=== PATIENT | male | born 1970 | race Caucasian/White ===

== ENCOUNTER → 2021-03-30 12:17 | Outpatient (CLI) | payer OTHER, SELFPAY ==
[2021-03-30 15:43] LABS: T4 Free Direct 0.92 ng/dL (0.76-1.46); Thyroid Stim Hormone (TSH) 3.79 uIU/mL (0.358-3.74)
[2021-04-01 13:32] LABS: Thyroid Peroxidase AB 489 IU/mL (0-34)
== END ==
PROVIDERS: PCP Family Medicine; Referring Provider Dermatology; Visit Provider Dermatology
DX: L80 Vitiligo (principal)
CPT/HCPCS: 36415; 84439; 84443; 86376